=== PATIENT | male | born 1985 | race African-American/Black ===

== ENCOUNTER 2017-07-12 18:00 | Emergency (ER) | payer OTHER ==
[2017-07-12] MEDS ORDERED: KETOROLAC TROMETHAMINE INJ/PF 30 MG/1 ML SDV IM ONE (18:38)
[2017-07-12] MEDS ORDERED: METHYLPREDNISOLONE INJ 40 MG/1 ML SDV IM ONE (18:39)
--- NOTE | 2017-07-12 18:41 | ER Document Report ---
HPI - HPI Patient complains to provider of: Right knee pain Pain Level: 3 Context: Patient is a 22-year-old male presents emergency department complaining of right knee pain. Patient admits that he has a history of bilateral meniscus tears that he has not had evaluated by surgery. Patient states that yesterday he was playing football with some friends and today woke up with some soreness in his right knee. Patient has been able to ambulate. Has been taking 800 mg Motrin every 8 hours at home. Denies any swelling. Otherwise denies any fevers or chills or recent trauma. Past Medical History - Social History Smoking Status: Smoker,Current Status Unk Family History: Reviewed & Not Pertinent Vertical Provider Document - CONSTITUTIONAL Agree With Documented VS: Yes Notes: PHYSICAL EXAM GENERAL: Alert, interacts well. EXTREMITIES: Moves all 4 extremities spontaneously. Right hip nontender and full range of motion. Right knee able to bend past 90 no evidence of joint effusion. Nontender to palpation. Negative anterior posterior drawer test. Negative varus and valgus test. No pain with axial loading of the joint. Right ankle nontender and full range of motion. No edema, dorsalis pedis pulses 2/4 bilaterally. No cyanosis. NEUROLOGICAL: Alert and oriented x4. Normal speech. PSYCH: Normal affect, normal mood. SKIN: Warm, dry, normal turgor. No rashes or lesions noted. - INFECTION CONTROL TRAVEL OUTSIDE OF THE [place] IN LAST 30 DAYS: No - RESPIRATORY O2 Sat by Pulse Oximetry: 98 Course - Re-evaluation Re-evalutation: 07/12/17 18:39 Patient is a 22-year-old male presents emergency department complaining of acute on chronic right knee pain. No evidence of effusion, patient able to bear weight and ambulate without any difficulty. No evidence of deformity. Patient was full range of motion in the knee. At this time low clinical suspicion for any acute intra-articular process requiring x-ray. Discussed with patient to continue taking Motrin otherwise rest, ice and elevation and to follow-up with primary care. Patient agrees with plan and is stable for discharge home - Vital Signs Vital signs: Temp Pulse Resp BP Pulse Ox 98.4 F 76 18 139/82 H 98 07/12/17 18:04 07/12/17 18:04 07/12/17 18:04 07/12/17 18:07/12/17 18:04 Discharge - Discharge Clinical Impression: Knee pain Qualifiers: Chronicity: acute Laterality: right Qualified Code(s): M25.561 - Pain in right knee Condition: Good Disposition: HOME, SELF-CARE Instructions: Acetaminophen, Use of [id number] Ibuprofen ([facility]), Ice & Elevation ([facility]), Suspected Internal Knee Injury ([facility]) Prescriptions: Methylprednisolone [Medrol Dosepack (4 mg/Tab) 21 Tab/Dosepak] 4 mg PO ASDIR PRN #21 [email or web address] PRN Reason: Forms: Return to Work Referrals: HOANG MARQUEZ MD [ACTIVE STAFF] - Follow up as needed (Orthopedics)
[2017-07-12 19:23] VITALS: BP 148/84
== END 2017-07-12 19:24 | disposition home or self-care (01) ==
LOC: EDBD 18:00 → ER 18:00
DX: M25.561 Pain in right knee (principal)
CPT/HCPCS: 99283; 96372; J2920; J1885